=== PATIENT | male | born 1980 | race Caucasian/White ===

== ENCOUNTER 2019-06-09 03:51 | Emergency (ER) | payer OTHER ==
[~2019-06-09] VITALS: Ht 175.3 cm; Wt 65.8 kg
[~2019-06-09 03:51] MED LIST: ARIP10 PO; ARIP20 PO; ATENOLOL; ATENOLOL PO; BACTRIM; BENZ.5 PO; BENZ1 PO; BENZ2 PO; CEPH500 PO; CLIN300 PO; CYCL10 PO; HALO5 PO; HCTZ; HCTZ PO; HYDACE5; HYDACE5 PO; Haldol 5 mg Tab5 MG PO; INCARCERATION; LISI20 PO; LISI5 PO; LOXA25 PO; NAPR220 PO; NAPR500 PO; OLAN10 PO; OLAN5 PO; OLAN7.5 PO; ONDA4ODT MM; OXYACE5T PO; PENVK500 PO; Permethrin60 GM TP; RXHYDACE PO; SULTRIDS PO; [UNRECOGNIZED DRUG - REMARK]
[2019-06-09] MEDS ORDERED: Cephalexin500 MG PO (07:17)
[2019-06-09] MEDS ORDERED: Bactrim Ds Tab1 EACH PO (07:17)
== END 2019-06-09 07:27 | disposition home or self-care (01) ==
LOC: ER 03:51
DX: L03.113 Cellulitis of right upper limb (principal); L03.114 Cellulitis of left upper limb; L03.115 Cellulitis of right lower limb; L03.116 Cellulitis of left lower limb; L97.929 Non-pressure chronic ulcer of unspecified part of left lower leg with unspecified severity; L97.919 Non-pressure chronic ulcer of unspecified part of right lower leg with unspecified severity; L98.429 Non-pressure chronic ulcer of back with unspecified severity; I10 Essential (primary) hypertension; F20.9 Schizophrenia, unspecified; F17.210 Nicotine dependence, cigarettes, uncomplicated; Z88.8 Allergy status to other drugs, medicaments and biological substances; Z79.899 Other long term (current) drug therapy
CPT/HCPCS: 99283